=== PATIENT | male | born 1975 | race Two or more races ===

== ENCOUNTER 2024-09-14 07:13 | Day surgery (SDC) | payer OTHER ==
[2024-09-14] MEDS ORDERED: FLUMAZENIL 0.5 MG/5 ML ML IV STA (12:06)
[2024-09-14] MEDS ORDERED: DIPHENHYDRAMINE HCL 50 MG/ML VIAL 1ML IV ONE (12:15)
[2024-09-14] MEDS ORDERED: fentaNYL CITRATE 50 MCG/ML AMPUL IV PUSH ONE (12:15)
[2024-09-14] MEDS ORDERED: MIDAZOLAM HCL 2 MG/2 ML VIAL IV ONE (15:00)
== END 2024-09-14 15:00 | disposition home or self-care (01) ==
LOC: AMB-ENDOS 07:13
PROVIDERS: ATTEND Colon & Rectal Surgery
DX: K63.5 Polyp of colon (principal); K58.9 Irritable bowel syndrome, unspecified